=== PATIENT | female | born 1955 | race Caucasian/White ===

== ENCOUNTER → 2017-08-08 13:43 | Outpatient (CLI) | payer OTHER, SELFPAY ==
--- OUTSIDE RECORDS SUMMARY | 2017-08-08 15:23 | XMS RPT_ITS | Clinical Summary ---
:1955 Author Organization [facility] Address [address] [place] [address] Phone Care Team Providers Name Role Phone Grace Gustafson Gaurav Unavailable Unavailable Conditions or Problems Problem Name Problem Onset Status Entry Provider Comment Standard Annotate Code Date Date Description Pre-op [id number] Resolved Ciara M Preoperative cardiovascul (SNOMED 07/26 07/26 Kilner, cardiovascular ar exam CT) RN examination Pre-op [id number] Removed Ciara M Preoperative cardiovascul (SNOMED 07/26 07/26 Kilner, cardiovascular ar exam CT) RN examination Abnormal R94.31 Active Ciara M Abnormal electrocardi (ICD-10-CM 07/26 07/26 Kilner, electrocardiogra ogram [ECG] ) RN m [ECG] [EKG] [EKG] Medications Medication Instructions Start Stop Generic Name NDC Provider Date Date GLUCOSAMINE HCL 1500mg One / GLUCOSAMINE HCL Ciara M TABS tablet by mouth 14 TABS DUSTY Holden twice daily GLUCOSAMINE HCL Two tablets by / GLUCOSAMINE HCL Elan Nolasco TABS mouth daily 14 TABS MD Vishal GLUCOSAMINE HCL Two tablets by GLUCOSAMINE HCL Elan Nolasco TABS mouth daily MIGUEL ANGEL Rodgers MD CALCIUM 500 MG One tablet by / CALCIUM [id number] Ciara M TABS mouth daily 14 Adina RN B-12 5000 MCG One tablet by / CYANOCOBALAMIN [id number] Ciara M CAPS mouth daily 14 DUSTY Holden CENTRUM SILVER One tablet by / MULTIPLE [id number] Ciara M TABS mouth daily 14 VITAMINS-MINERALS DUSTY Holden IBUPROFEN 200 Two tablets by / IBUPROFEN [id number] Ciara M MG TABS mouth twice 14 Adina RN daily as needed Medications Administered No information available. Allergies, Adverse Reactions, Alerts Allergy Name Reaction Description Start Date Severity Status Provider NKDA Critical Active Elan Rodgers MD Results Date Name Value Unit Range Flag Description Office Visit SMOK STATUS Former smoker Tobacco use [facility] Replaced Document: Midmark ECG Observations EKG INTERP Sinus Bradycardia electrocardiogram WITHIN NORMAL LIMITS interpretation EKG T AXIS 39 deg T wave axis, electrocardiogram EKG QRS AXIS 21 deg QRS axis, electrocardiogram EKG PWAVAXIS 45 deg P wave axis, electrocardiogram QRS INTERVAL 112 ms QRS duration, electrocardiogram [id number] 406 ms GE use only - for LinkLogic import when terms are not otherwise specified QT INTERVAL new path ms QT interval, electrocardiogram VA INTERVAL 150 ms VA interval, electrocardiogram EKGHRTRATE 55 BPM heart rate on electrocardiogram Office Visit FALLRSKASSES No Fall risk assessment MEDS REVIEW Done Documentation of current medications ( procedure) Plan of Care Type Date Detail Appointment 01:00 PM Elan Rodgers MD, [address] [facility], [address] , [place], [address], Pending order Follow Up Appt 1 year Pending order DJN Pending order Follow Up Appt 1 year Pending order DJN Pending order DJN Pending order Follow Up Appt 1 year Pending order EKG (In office) Pending order *Hepatic Function Panel Pending order *Lipid Profile CC PCP Pending order Echocardiogram (complete) Pending order Nuclear stress test -Lexiscan Procedures Code Procedure Name Date Entry Date NSTLexi Nuclear stress test -Lexiscan Echo Echocardiogram (complete) F/U DJN DJN FUA 1 year Follow Up Appt 1 year CPT-66515 EKG (In office) 0788-1 *Hepatic Function Panel 07860-9 *Lipid Profile CC PCP Vital Signs Date Name Value Unit Description BMI (Body Mass Index) 24.89 kg/m2 Body Mass Index [Ratio] BP Diastolic 82 mm[Hg] blood pressure, diastolic - 8462-4 BP Systolic 124 mm[Hg] blood pressure, systolic - 8480-6 Heart Rate 60 /min pulse rate E&M - 8867-4 Height 64 [in_us] height E&M - 8302-2 Respiratory Rate 18 /min respiratory rate E&M - 9279-1 Weight Measured 145 [lb_av] weight E&M - 3141-9
--- OUTSIDE RECORDS SUMMARY | 2017-08-08 15:23 | XMS RPT_ITS | Clinical Summary ---
:1955 Author Organization Formerly [facility] Address [address] [place] [address] Phone Care Team Providers Name Role Phone Grace Gustafson Gaurav Unavailable Unavailable Conditions or Problems Problem Name Problem Onset Status Entry Provider Comment Standard Annotate Code Date Date Description Pre-op [id number] Resolved Ciara M Preoperative cardiovascul (SNOMED 07/26 07/26 Kilner, cardiovascular ar exam CT) RN examination Pre-op [id number] Removed Ciara M Preoperative cardiovascul (SNOMED 07/26 [...] 500 MG One tablet by / CALCIUM [id number] Ciara M TABS mouth daily 14 Adina RN B-12 5000 MCG One tablet by / CYANOCOBALAMIN [id number] Caira M CAPS mouth daily 14 DUSTY Holden CENTRUM SILVER One tablet by / MULTIPLE [id number] Ciara M TABS mouth daily 14 VITAMINS-MINERALS DUSTY Holden IBUPROFEN 200 Two tablets by / IBUPROFEN [id number] Ciara M MG TABS mouth twice 14 Adina RN daily as needed Medications Administered No information available. Allergies, Adverse Reactions, Alerts Allergy Name Reaction Description Start Date Severity Status Provider NKDA Critical Active Elan Rodgers MD Results Date Name Value Unit Range Flag Description Office Visit SMOK STATUS Former smoker Tobacco use [facility] Replaced Document: Midmark ECG Observations EKG INTERP [...] INTERVAL new path ms QT interval, electrocardiogram [place] INTERVAL 150 ms [place] interval, electrocardiogram EKGHRTRATE 55 BPM heart rate on electrocardiogram Office Visit FALLRSKASSES No Fall risk assessment MEDS REVIEW Done Documentation of current medications ( procedure) Plan of Care Type Date Detail Pending order Follow Up Appt 1 year [...] 1 year Follow Up Appt 1 year CPT-43778 EKG (In office) 0788-1 *Hepatic Function Panel 44749-0 *Lipid Profile CC PCP Vital Signs Date [...]
[2017-08-14 10:50] LABS: HPV Reflexed? NOT INDICATED
== END ==
PROVIDERS: Visit Provider Obstetrics & Gynecology
DX: Z12.4 Encounter for screening for malignant neoplasm of cervix (principal)
CPT/HCPCS: 88175; G0145

== ENCOUNTER 2019-07-28 05:26 | Day surgery (SDC) | payer OTHER, SELFPAY ==
--- NOTE | 2019-07-23 10:48 | EKG12_ITS ---
Test Reason : PREOP Blood Pressure : / mmHG Vent. Rate : 055 BPM Atrial Rate : 055 BPM P-R Int : 170 ms QRS Dur : 104 ms QT Int : 432 ms P-R-T Axes : 043 009 025 degrees QTc Int : 413 ms Sinus bradycardia Otherwise normal ECG Confirmed by ALLEN KAPADIA, PREM ([id number]), avid editor SUMAN JONES ([id number]) on 07/29/2019 9:40:13 AM Referred By: Seth Ugarte Confirmed By:PREM VILLA MD
[2019-07-23 11:23] LABS: Hematocrit 45.8 % (37-47); Hemoglobin 14.4 g/dL (12.0-15.0); Mean Corp Hgb Conc 31.4 g/dL (32-36); Mean Corpuscular Volume 98.5 fL (81-99); Mean Platelet Vol. 10.1 fl (6.2-12.0); Platelet Count 269 K/mm3 (150-450); RBC Distribution Width CV 13.2 % (11.6-14.6); RBC Distribution Width SD 47.6 fl (35.1-43.9); Red Blood Count 4.65 M/mm3 (4.2-5.4); White Blood Count 5.4 K/mm3 (4.4-11.0)
[2019-07-23 11:28] LABS: International Normalized Ratio 0.9; Prothrombin Time (Protime)PT. 11.9 SECONDS (11.7-14.9)
[2019-07-23 11:29] LABS: Partial Thromboplast Time 31.2 Seconds (24.1-36.2)
[2019-07-23 11:49] LABS: EST Glomerular Filtration Rate 77 mL/min (>60); Est Glom Filt Rate - Afr Amer 93 mL/min (>60)
--- NOTE | 2019-07-26 12:36 | HP.PCM_ITS ---
History and Physical Date of Admission: 07/28/19 Surgical History and Physical Jazmyne Disla, a 63 year old female 3 0 0 0 3, presents for Vaginal Hysterectomy and AP Repair on July 29, 2019 at 7:30. -- Prolapse Symptoms; Bulging from Vagina -- Prolapse that started in . 63 y.o. G 3 P 3 post-menopausal non- smoker and reports that she first noticed something down there in December, then in spinning class it seems to be the worst. Denies other concerns at this time. Prolapse which began . Jazmyne claims it started gradually and has been present Dec 2018. It occurs while spinning. It is located in the vagina. Jazmyne characterizes it to be non-radiating. Jazmyne characterizes the quality asymptomatic. Severity is moderate and very concerned. MEDICATIONS HISTORY: Current medications prescribed by our practice are: 1. Estrace 0.01% (0.1 mg/gram) vaginal cream, one half gram per vagina twice we ekly Patient is also takin. Calcium 500 500 mg calcium (1,250 mg) tablet,chewable 2. multivitamin tablet 3. vitamin C60-xwypi acid 1,000-400 mcg tablet, sublingual, One pill by mouth once a day ALLERGIES: NKDA Infections - Chicken pox, Herpes Simplex, Mumps and Measles Illnesses - no serious past illnesses Accidents - None Hospitalizations - None and see surgery Review of Systems: GENERAL - Denies fever, or chills SKIN - Denies skin changes EYES - Denies visual changes EARS - Denies difficulty hearing NOSE - Denies nasal congestion or bleeding MOUTH - Denies sore throat or difficulty swallowing NECK - Denies pain or swelling RESPIRATORY - Denies shortness of breath or wheezing CARDIOVASCULAR - Denies palpitations or chest pain GASTROINTESTINAL - Denies nausea, vomiting, diarrhea, constipation GENITOURINARY - Denies dysuria, frequency of urination, incontinence of urine MUSCULOSKELETAL - Denies joint or muscle pain NEUROLOGICAL - Denies localized numbness or weakness PSYCHIATRIC - Denies depression or anxiety ENDOCRINE - Denies heat or cold intolerance, weight loss or gain HEMATO-IMMUNOLOGIC - Denies excessive bleeding with cuts SOCIAL HISTORY: Alcohol Use - None Smoking - Never Diet - no special diet Lifestyle - moderate stress lifestyle and Exercise - regular Seat Belt Use - most of the time Employer - [employer] Job Description - [employer] Programs Illicit Drug Use - None 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 MENSTRUAL HISTORY: LMP Known?- Postmenopausal PAST PREGNANCIES: Total Pregnancies - 3; Full Term Pregnancies - 3; Premature - 0; Abortions, Induced - 0; Abortions, Spontaneous - 0; Ectopics - 0; Multiple Births - 0; Living Children - 3 SURGICAL HISTORY: 1. 12/15/1988 Tubal 2. 11/16/2001 (L) Knee Surgery 3. 01/20/2009 Toe Fusion 4. 08/02/2015 Bilateral Knee Surgery ; Dr. Chago Gaming PHYSICAL EXAM BP- 120/78 Sitting, Right arm, regular cuff Weight- 153.43050 lbs Height- 63 inch BMI:27.16 CONSTITUTIONAL - NAD, well nourished, and well developed SKIN - No rash, lesions, or ulcers HEENT - Normocephalic, PERRLA, EOMI NECK - No nodes, no nuchal rigidity and thyroid normal size and texture LYMPH NODES - Palpation of lymph nodes in neck and groins within normal limits LUNGS - CTA x2 without wheezes, crackles or rales CARDIAC - Regular rate and rhythm without rubs, murmurs, or gallops ABDOMEN - Without hepatosplenomegaly, distention, masses, rebound, or guarding; normal bowel sounds; no hernias EXTREMITIES - No edema or calf tenderness NEUROLOGICAL - Cranial nerves II-XII grossly intact PSYCHIATRIC - A and O to time, place, person, mood and affect External Genital Vagina - non-tender without lesions Urethra/Urethral Meatus - non-tender Bladder - non-tender Vagina - loss of rugae, no lesions no blood and cystocele 1 cm outside introitus with bearing down; rectocele to within 2 cm of introitus Cervix - without cervical motion tenderness and has normal size and features without evident lesions and cervix protrudes to within 2 cm of introitus with bearing down Uterus - multiparous size 6 cm & wt 75-125 g Adnexa - clear without masses or tenderness ASSESSMENT/PLAN: 1. Cystocele Midline and Uterovag Prolapse Incomplete Very symptomatic. Discussed options for treatment including expectant management, pessary use or proceeding with Vag Hyst and AP Repair. Pt considering proceeding with the surgery. Discussed surgery and RBAs at length and all questions answered. Procedure Criteria Procedure Type: Elective Procedure Essential: No COVID Risk Discussion: The surgeon/proceduralist and patient have discussed in detail the risk of exposure to and/or potential harm posed by the COVID-19 virus with having a surgery/procedure at this time versus the risk of delaying the surgery/procedure. It is not possible to know either the risk of delaying the surgery or procedure or chance of getting an infection with perfect accuracy, but a joint decision was made between the patient and the surgeon/proceduralist to proceed at this time with the scheduled surgery/procedure as indicated on the consent form.
[2019-07-27 12:06] LABS: Probe Check PASS; Specimen Processing Control PASS
[2019-07-28] VITALS (24 sets, daily range): BP systolic 73–133; BP diastolic 50–86; PULSE 43–101; RESP 14–18; TEMP 36.3–37.3; O2SAT 92–100; BMI 28.0
--- NOTE | 2019-07-28 | HYST_PTH ---
PATIENT: ANDREA QUILES LOC: [facility] [place] U#:[id number] AGE/SX: 63/F ROOM: RE07/28/[address]: Dr. Seth Ugarte MD : 1955 BED: DIS: 07/29/2019 SPEC #: [id number] RECD: 07/28/19 12:04 STATUS: ANANTH JOHNSONTawny #: [id number] ANTOLIN: 07/28/19 00:[address]: Seth Ugarte DEPT: SURGICAL PATHOLOGY RECD BY: Evgeny Singh ENTERED: 07/28/19 12:04 SP TYPE: HYSTERECT OTHR DR: Dr. Rl Stevenson MD Tissues: Uterus, NOS Procedures: Surgery Specimen Level V HEADER OPERATION: Vaginal hysterectomy, anterior and posterior repair PRE-OP DIAGNOSIS: Cystocele midline and uterovaginal prolapse TISSUE SUBMITTED: Uterus and vaginal mucosa MICROSCOPIC DIAGNOSIS Uterus and vaginal mucosa, vaginal hysterectomy: Cervix - mild chronic cystic cervicitis. Endometrium - atrophic endometrium. Myometrium - focal superficial adenomyosis. See comment. SJ:rg 07/29/19 COMMENT Vaginal mucosal tissue is not identified in the specimen container. MICROSCOPIC DESCRIPTION Slides are reviewed. GROSS DESCRIPTION Received in fixative is one container labeled with the patient's name and designated uterus and vaginal mucosa. The specimen consists of a hysterectomy specimen consisting of uterus with cervix. No mucosal tissue consistent with vaginal mucosa are identified. The uterus with cervix weighs 39 gm and measures 7 x 3.5 x 2.5 cm. The serosal surface is focally ragged anteriorly. The ectocervical mucosa is unremarkable. The external os is oval in contour. The endocervical canal measures 3 cm in length and the endocervical mucosa is dyson, glistening and unremarkable. The endometrium is dyson, glistening without any mass lesion and measures 0.1 cm in thickness. Sections of the uterine wall do not reveal any mass lesion and measures up to 1.3 cm in thickness. Warehouse Hand sections are submitted in six cassettes as follows: 1 - anterior cervix, 2 - posterior cervix, 3 & 4 - anterior uterine wall, 5 & 6 - posterior uterine wall. / ALONA:christy 07/28/19 TC:5 CPT: 64136
[2019-07-28] MEDS: Lactated Ringers 1,000 ML 100 ML IV ×2 (06:13→08:45)
--- NOTE | 2019-07-28 07:33 | PCM.OPRPT ---
Report of Operation Date of Procedure: 07/28/19 Pre-Operative Diagnosis: Uterovaginal Prolapse, Cystocele, Rectocele Post-Operative Diagnosis: Uterovaginal Prolapse, Cystocele, Rectocele Surgery/Procedure Performed:: Vaginal Hysterectomy and Anterior Posterior Repair Description of Surgical Findings:: 8 cm uterus with large cystocele moderate rectocele. health care liaison: Kenneth Wiggins Type of Anesthesia:: General - Endotracheal Anesthesiologist: Lb York Specimen's removed: Uterus and vaginal mucosa Drains: Dior to straight drain Estimated Blood Loss (mL): 100 cc Fluids Replaced: Crystalloid Description of Procedure: Surgeon: Seth Ugarte MD, FACOG Indications: This is a 63-year-old who is been having problems with symptomatic uterovaginal prolapse. Conservative measures have not been helpful. Given this the patient desires that we proceed the above procedure. She has been counseled regarding the risk and indications of this procedure including the possibility of bleeding, infection, and injury to surrounding structures such as bowel bladder. All questions were answered. Procedure: Patient was taken to the operating room where after induction of general anesthesia she was placed in the dorsal lithotomy position and prepped and draped in the usual sterile fashion. A Dior catheter was placed. Anterior cervix was grasped with a tenaculum and anterior cervix circumscribed with cautery on a setting of 35 W coagulation. Anterior vaginal mucosa was undermined and anterior peritoneum was easily entered. The posterior aspect of the cervix was circumscribed with a knife and posterior peritoneum easily entered. Progressive bites were taken on either side of the uterine cervix and each pedicle ligated with 0 Vicryl suture. Superior pedicles were ligated ?2 with 0 Vicryl suture and sidewall pedicles were examined and oversewn where necessary with [id number]-[id number] 0 Vicryl suture to achieve hemostasis. Posterior vaginal cuff was oversewn with running locked 0 Vicryl suture. Hemostasis was noted and peritoneum was closed in a pursestring fashion incorporating superior pedicles into the stitch. Vaginal cuff was then closed front to back with interrupted tfagsi-ea-jualv 0 Vicryl suture. Hemostasis was noted. Attention was turned toward the anterior repair portion of the procedure. Anterior vaginal mucosa was undermined and divided and then imbricated toward the midline with interrupted 0 Vicryl sutures. Vaginal mucosa was trimmed and then closed with interrupted 2-0 chromic suture. Vaginal cuff was then closed front to back with interrupted rlacyo-yc-axfai 0 Vicryl suture. Hemostasis was noted. Attention was turned toward the posterior repair portion of the procedure. Remnants of the hymenal ring were grasped with Allises and a V-shaped incision was made in the perineum. Rectovaginal mucosa was then undermined divided and then imbricated toward the midline with interrupted 0 Vicryl suture. Vaginal mucosa was trimmed and then closed with running locked 2-0 chromic suture. Remnants of the bulbocavernosus muscles were identified and brought toward the midline with a single uhukqc-ar-iwlpl 0 Vicryl suture and perineum was closed in the usual fashion with running and subcuticular, and ggupyb-hv-hraug 2-0 chromic suture. Hemostasis was noted. Dior catheter was again opened and clear yellow urine was noted. Vagina was packed with about 85% of an iodoform tape. Patient tolerated the procedure well was taken to recovery room in satisfactory condition; sponge instrument and needle counts were all reportedly correct. Estimated blood loss for the case was 100 cc. Cefotan 2 g IV was given prior to beginning the operative procedure. There were no apparent complications of the surgery. Specimen to pathology was uterus and vaginal mucosa. Grafts/Implants Used: None - Complications None - Admit VTE Documentation VTE Present on Admission: Yes VTE Mechan Device Prophylaxis: SCD's VTE Pharm Prophylaxis ordered?: Yes
--- NOTE | 2019-07-28 07:49 | EKG12_ITS ---
Test Reason : OP Blood Pressure : / mmHG Vent. Rate : 066 BPM Atrial Rate : 066 BPM P-R Int : 150 ms QRS Dur : 108 ms QT Int : 454 ms P-R-T Axes : 042 068 024 degrees QTc Int : 475 ms Normal sinus rhythm Normal ECG When compared with ECG of 23-JUL-2019 11:00, Questionable change in QRS axis QT has lengthened Confirmed by YEYO KAPADIA, DUGLAS ([id number]), features editor MARYBETH BENZ ([id number]) on 08/04/2019 10:41:02 AM Referred By: Seth Ugarte Confirmed By:ANGELITA ORONA MD
[2019-07-28] MEDS: Lubricating Jelly 60 GM Tube 30 GM TOPICAL (07:50)
--- NOTE | 2019-07-28 09:35 | DCINST_ITS ---
Discharge Diet: No Restrictions Discharge Activity: Return to Normal Activity, May Not Drive - while taking narcotic pain medications., May Shower, May Take a Tub Bath May resume sexual activity in: 6-8 weeks Call your doctor if your incision/area has: Continuous Slow Oozing, Sudden Inc reased Bleeding, Increased Pain/ Swelling, Increased Redness, Foul Smelling Discharge Call your doctor if you observe: Fever of 101 or Higher, Inability to urinate, Inability to have a bowel movement, Using more than one pad per hour Allergies/Adverse Reactions: Allergies No Known Allergies Allergy (Verified 07/28/19 06:02) Medications to take at Discharge Calcium Carbonate/Vitamin D3 [Calcium 500-Vit D3 200 Tablet] 1 ea PO DAILY 07/21/19 Cyanocobalamin (Vitamin B-12) [Vitamin B-12] 1,000 mcg PO DAILY 07/21/19 RX: Multivitamin 1 ea PO DAILY 07/21/19 Docusate Sodium [Colace] 100 mg PO BID PRN PRN #60 cap 07/28/19 RX: Oxycodone [Oxyir] 5 mg PO Q6H PRN PRN 7 Days #10 tab 07/28/19 The following prescriptions were given: Docusate Sodium [Colace] 100 mg PO BID PRN PRN #60 cap PRN Reason: Constipation Transmission Status: Received by [id number] RX: Oxycodone [Oxyir] 5 mg PO Q6H PRN PRN 7 Days #10 tab PRN Reason: Pain Score 6-10/10 Transmission Status: Received by [id number] Primary Care Physician: Rl Stevenson MD [Primary Care Provider] - Test Results: Test results from this visit will be discussed in further detail at your follow- up appointment, if applicable. Please Follow Up With: Seth Ugarte MD When: 2-3 weeks
--- NOTE | 2019-07-28 11:00 | EKG12_ITS ---
Test Reason : OP Blood Pressure : / mmHG Vent. Rate : 087 BPM Atrial Rate : 087 BPM P-R Int : 150 ms QRS Dur : 114 ms QT Int : 436 ms P-R-T Axes : 053 028 063 degrees QTc Int : 524 ms Sinus rhythm with frequent Premature ventricular complexes in a pattern of bigeminy Otherwise normal ECG When compared with ECG of 28-JUL-2019 07:49, MANUAL COMPARISON REQUIRED, DATA IS UNCONFIRMED Confirmed by YEYO KAPADIA, DUGLAS ([id number]), editor trade journal MARYBETH BENZ ([id number]) on 08/04/2019 10:40:46 AM Referred By: Seth Ugarte Confirmed By:ANGELITA ORONA MD
--- NOTE | 2019-07-28 11:26 | SUR.PHASEI ---
dr prado in to review ekg, new orders received.
[2019-07-28] MEDS: Lactated Ringers 1,000 ML 999 ML IV (11:32)
[2019-07-28 11:54] LABS: Absolute Lymphocyte Count 0.74 X10^3/uL (0.83-4.51); Absolute Neutrophil Count 12.9 X10^3/uL (2.0-7.7); Basophil# 0.02 X10^3/uL; Basophil% 0.1 % (0-1); Eosinophil# 0.01 X10^3/uL; Eosinophils% 0.1 % (0-5); Hematocrit 40.8 % (37-47); Hemoglobin 12.9 g/dL (12.0-15.0); Lymphocyte # 0.74 X10^3/ul (4.0); Lymphocyte % 5.3 % (19-41); Mean Corp Hgb Conc 31.6 g/dL (32-36); Mean Corpuscular Hgb 31.3 pg (27.0-32.0); Mean Platelet Vol. 10.6 fl (6.2-12.0); Monocyte% 1.4 % (0-10); NRBC Flagged by Analyzer 0 % (0-5); Neutrophil # 12.94 X10^3/uL (2.7-7.7); Neutrophil % 92.6 % (47-70); Platelet Count 190 K/mm3 (150-450); RBC Distribution Width CV 13.2 % (11.6-14.6); RBC Distribution Width SD 47.8 fl (35.1-43.9); Red Blood Count 4.12 M/mm3 (4.2-5.4)
[2019-07-28 12:07] LABS: Anion Gap 8 (5-15); BUN 15 mg/dL (7-18); BUN/Creat Ratio 14.7 RATIO (10-20); Calcium,Total 8.4 mg/dL (8.5-10.1); Chloride 108 mmol/L (98-107); Creatinine, Serum 1.02 mg/dL (0.55-1.02); EST Glomerular Filtration Rate 58 mL/min (>60); Est Glom Filt Rate - Afr Amer 70 mL/min (>60); Estimated Creatinine Clearance 45.23 ml/min; Glucose 178 mg/dL (74-106); Potassium 3.7 mmol/L (3.5-5.1); Sodium Level 142 mmol/L (136-145)
[2019-07-28] MEDS: Dextrose 5%-Lactated Ringers 1,000 ML 150 ML IV ×2 (13:40→20:59)
[2019-07-28] MEDS: Ketorolac 30 MG/ML Syringe IV ×3 (15:13→23:37)
[2019-07-28] MEDS: HYDROmorphone 0.5 MG/0.5 ML SYRINGE IV (18:24)
[2019-07-28] MEDS: Enoxaparin 30 MG/0.3 ML Syringe SC (19:26)
[2019-07-28] MEDS: 0.9% Saline Lock 10 ML Syringe IV (19:30)
[2019-07-29 02:50] VITALS: BP 118/72; PULSE 79; RESP 18; TEMP 37.1; O2SAT 93
[2019-07-29] MEDS: Dextrose 5%-Lactated Ringers 1,000 ML 150 ML IV (03:32)
[2019-07-29 05:50] LABS: Hematocrit 34.8 % (37-47); Hemoglobin 11.3 g/dL (12.0-15.0); Mean Corp Hgb Conc 32.5 g/dL (32-36); Mean Corpuscular Hgb 31.3 pg (27.0-32.0); Mean Corpuscular Volume 96.4 fL (81-99); Mean Platelet Vol. 10.2 fl (6.2-12.0); Platelet Count 191 K/mm3 (150-450); RBC Distribution Width CV 13.5 % (11.6-14.6); RBC Distribution Width SD 47.8 fl (35.1-43.9); Red Blood Count 3.61 M/mm3 (4.2-5.4); White Blood Count 11.7 K/mm3 (4.4-11.0)
[2019-07-29] MEDS: Ketorolac 30 MG/ML Syringe IV (05:59)
[2019-07-29] MEDS: 0.9% Saline Lock 10 ML Syringe IV (05:59)
[2019-07-29 06:12] LABS: Creatinine, Serum 0.83 mg/dL (0.55-1.02); EST Glomerular Filtration Rate 74 mL/min (>60); Est Glom Filt Rate - Afr Amer 90 mL/min (>60); Estimated Creatinine Clearance 55.58 ml/min
[2019-07-29 07:28] VITALS: O2SAT 93
--- NOTE | 2019-07-29 08:08 | PN.OBGYN_ITS ---
Subjective: Patient without complaints. Tolerating diet well. Dior catheter still in. Positive flatus. Minimal pain. Objective: Vaginal pack removed with minimal vaginal bleeding noted. Hemoglobin and creatinine okay. - Physical Exam Vitals/I&O's: Vital Signs Temp Pulse Resp BP Pulse Ox 98.7 F 79 18 118/72 93 07/29/19 02:50 07/29/19 02:50 07/29/19 02:50 07/29/19 02:50 07/29/19 07:28 Oxygen Flow Rate (L/min) 2 Oxygen Delivery Method Room Air Weight: 153 lb 9.6 oz Body Mass Index (BMI) 28.0 Intake and Output for Last 24 Hours 07/27/19 07/28/19 07/29/19 23:59 23:59 23:59 Intake Total 5322.5 / 5322.5 1382.5 / 1382.5 Output Total 745 / 745 800 / 800 Balance 4577.5 / 4577.5 582.5 / 582.5 Laboratory Results 07/28/19 11:40: WBC 14.0 H, RBC 4.12 L, Hgb 12.9, Hct 40.8, MCV 99.0, MCH 31.3, MCHC 31.6 L, RDW Std Deviation 47.8 H, RDW Coeff of Srikanth 13.2, Plt Count 190, MPV 10.6, Immature Gran % (Auto) 0.500, Neut % (Auto) 92.6 H, Lymph % (Auto) 5.3 L, [place] % (Auto) 1.4, Eos % (Auto) 0.1, Baso % (Auto) 0.1, Absolute Neuts (auto) 12.9 H, Absolute Lymphs (auto) 0.74 L, Nucleated RBC % 0 07/28/19 11:40: Sodium 142, Potassium 3.7, Chloride 108 H, Carbon Dioxide 26.0, Anion Gap 8, BUN 15, Creatinine 1.02, Estim Creat Clear Calc 45.23, Est GFR (MDRD) Af Amer 70, Est GFR (MDRD) Non-Af 58 L, BUN/Creatinine Ratio 14.7, Glucose 178 H, Calcium 8.4 L, Troponin I < 0.015 07/29/19 05:33: WBC 11.7 H, RBC 3.61 L, Hgb 11.3 L, Hct 34.8 L, MCV 96.4, MCH 31.3, MCHC 32.5, RDW Std Deviation 47.8 H, RDW Coeff of Srikanth 13.5, Plt Count 191, MPV 10.2 07/29/19 05:33: Creatinine 0.83, Estim Creat Clear Calc 55.58, Est GFR (MDRD) Af Amer 90, Est GFR (MDRD) Non-Af 74 Current Medications Acetaminophen (Tylenol) 1,000 mg PO Q8H PRN PRN PRN Reason: Pain Score 1-3/10 or Fever Docusate Sodium (Colace) 100 mg PO BID PRN PRN PRN Reason: CONSTIPATION Hydromorphone HCl (Dilaudid Inj) 0.5 mg IV Q3H PRN PRN PRN Reason: Pain Score 4-10/10 Last Admin: 07/28/19 18:24 Dose: 0.5 mg Documented by: Dextrose/Lactated Ringer's () 1,000 mls @ 150 mls/hr IV .Q6H40M [facility] Last Admin: 07/29/19 03:32 Dose: 150 mls/hr Documented by: Sodium Chloride () 250 mls @ 15 mls/hr IV .[id number] PRN PRN Reason: Saline Flush Ketorolac Tromethamine (Toradol (Bkc)) 30 mg IV Q6H [facility] Stop: 08/02/19 12:01 Last Admin: 07/29/19 05:59 Dose: 30 mg Documented by: Ondansetron HCl (Zofran) 4 mg IV Q4H PRN PRN PRN Reason: NAUSEA Oxycodone HCl (Oxyir) 5 mg PO Q4H PRN PRN PRN Reason: Pain Score 4-10/10 Simethicone (Mylicon) 80 mg PO [facility] Last Admin: 07/28/19 21:10 Dose: 80 mg Documented by: Sodium Chloride () 10 - 40 ml IV UD PRN PRN Reason: SALINE FLUSH Last Admin: 07/29/19 05:59 Dose: 10 ml Documented by: Medical Necessity - Tobacco Use Smoking Status: Never smoker Tobacco Use: Non-smoker Assessment/Plan Doing well postoperative day #1 status post vaginal hysterectomy and anterior posterior repair. Will release to home with routine instructions.
[2019-07-29 08:19] VITALS: BP 131/76; PULSE 59; RESP 18; TEMP 36.9; O2SAT 98
== END 2019-07-29 10:03 | disposition home or self-care (01) ==
LOC: SDC 05:27 → AC 05:38 → MS3 07:44
PROVIDERS: Anesthesiology; Referring Provider Obstetrics & Gynecology; Visit Provider Obstetrics & Gynecology
PROC: (CPT 58260; principal; 2019-07-28 07:10)
DX: N72 Inflammatory disease of cervix uteri (principal); N80.0 Endometriosis of uterus; N81.4 Uterovaginal prolapse, unspecified; Z11.59 Encounter for screening for other viral diseases
CPT/HCPCS: 00942; 57260; 58260; 36415; 80048; 82565; 84484; 85025; 85027; 85610; 85730; 86850; 86900; 86901; 87635; 88307; 93005; 99251; G2023; J7120; A4216; G0463; J2405; U0003

== ENCOUNTER → 2023-03-20 | Outpatient (CLI) | payer OTHER, SELFPAY ==
--- NOTE | 2023-03-20 10:00 | CYSPIN_PTH ---
PATHOLOGY RESULTS PATIENT: ANDREA QUILES LOC: [facility] U#:[id number] AGE/SX: 67/F ROOM: RE03/20/[address]: Dr. Charlotte Esposito MD : [id number] BED: DIS: 03/20/2023 SPEC #: [id number] RECD: 03/21/23 07:32 STATUS: ANANTH RETawny #: [id number] ANTOLIN: 03/20/23 10:[address]: Charlotte Esposito DEPT: CYTOLOGY RECD BY: Starr Camacho ENTERED: 03/21/23 07:32 SP TYPE: CYSPIN FL Tissues: Urine Procedures: Pap Stain (control) Special Stain Group II Cytospin Fluid HEADER OPERATION: Not noted PRE-OP DIAGNOSIS: Gross hematuria TISSUE SUBMITTED: Urine for cytology DIAGNOSIS CYTOLOGY Urine for cytology (cytospin): Negative for high-grade urothelial carcinoma (NHGUC), [facility] System Category II. See comment. ALONA:christy 03/21/2023 COMMENT The specimen predominantly consists of squamous epithelial cells. Clinical correlation and appropriate follow up are necessary. The [facility] System for urine cytology diagnostic categorization was used in the evaluation of this case. CYTOLOGY STUDY Slides are reviewed. CYTOLOGY GROSS Received is 20 ml of light yellow cloudy fluid labeled with the patient's name and and designated per the requisition as urine. Submitted for cytology preparation. / christy 03/20/2023 TC:4 CPT: 63481
[2023-03-20 18:14] LABS: Cytology, Body Fluid / CSF SEE PATHOLOGY REPORT
--- OUTSIDE RECORDS SUMMARY | 2023-03-20 20:05 | XMS RPT_ITS | CCD ---
Author Name Unknown Address [address] [place] [address] Organization [facility] Care Team Providers Care Director General Name Role Phone ZUTSHI, MASSARAT Unavailable Unavailable RUPA BENZ Unavailable Unavailable ZUTSHI, MASSARAT Unavailable Unavailable ZUTSHI, MASSARAT Unavailable Unavailable ZUTSHI, MASSARAT Unavailable Unavailable ZUTSHI, MASSARAT Unavailable Unavailable Grace Gustafson Unavailable Unavailable Grace Gustafson Unavailable Unavailable Required, No Pcp Unavailable Unavailable Nidhi, Briana Unavailable Unavailable Jessica GREGG, Nishant Santizo Unavailable Mekhi KAPADIA, Dr. Mendoza Unavailable Cate KAPADIA, Dr. Porter Unavailable [phone] Sandip MONTANO, Lissy Unavailable Unavailable Felisha RM, Maria Alejandra Unavailable Avni KAPADIA, Felix Bryson Unavailable Jes Simmons MA Unavailable Unavailable Graham KAPADIA, Tramaine Schmidt Unavailable Yadi GREGG, Analy Nixon Unavailable Rylie Sutton MA Unavailable Unavailable Sam RM, Tiffanie Unavailable Unavailable Eric GREGG, Naida Nolasco Unavailable Ramiro RM, Melyssa Christiansen Unavailable Unavailab jewel Bullard LPN, Collette Le Unavailable Unavailab jewel Beasley LPN, Kathy Unavailable Unavailcristiano Wu LPN, Hina Vieira Unavailable Unavaila ble Unavailable Unavailable Seth Ugarte MD Primary Care Provider [phone] ENRIQUE CORDERO Admitting Unavailable ENRIQUE CORDERO Primary Care Unavailable ENRIQUE CORDERO Attending Unavailable JESSICA, LUKE E Consulting Unavailable PROVIDER, UNKNOWN Consulting Unavailable JESSICA, LUKE E Consulting Unavailable JESSICA, LUKE E Attending Unavailable JESSICA, LUKE E Admitting Unavailable JESSICA, LUKE E Primary Care Unavailable PROVIDER, UNKNOWN Consulting Unavailable JESSICA, LUKE E Attending Unavailable JESSICA, LUKE E Admitting Unavailable JESSICA, LUKE E Primary Care Unavailable JESSICA, LUKE E Consulting Unavailable PROVIDER, UNKNOWN Consulting Unavailable Medications Current Medications Medication Drug Class(es) Dates Sig (Normalized) Sig (Original) azithromycin 250 mg oral tablet (6 sources) Macrolide Antimicrobial Start: 02-16-2023 End: 02-21-2023 Azithromycin 250 MG tablet Indications: Acute bronchitis, unspecified organism 2 tabs po day 1 then 1 tab day 2-5 6 tablet 0 02/16/2023 02/21/2023 Active Completed/Discontinued Medications Medication Drug Class(es) Dates Sig (Normalized) Sig (Original) acetaminophen 325 mg / oxyCODONE hydrochloride 5 mg oral tablet (5 sources) Opioid Agonist Start: 08-11-2015 End: 08-24-2015 PERCOCET, 5-325MG (Oral Tablet) ; 1 (one) Tablet q 4hrs prn pain 1-5, 2 tabs q 4hrs prn pain 6-10 for 0 days Quantity: 120 {Tablet} Refills: 0 Ordered: 24-Aug-2015 JAG Wu Start: 11-Aug-2015 End: 24-Aug-2015 Status: Inactive acyclovir 400 mg oral tablet (5 sources) Herpesvirus Nucleoside Analog DNA Polymerase Inhibitor, Herpes Simplex Virus Nucleoside Analog DNA Polymerase Inhibitor, Herpes Zoster Virus Nucleoside Analog DNA Polymerase Inhibitor Start: 07-30-2015 End: 08-24-2015 take 1 tablet by mouth twice daily ACYCLOVIR, 400MG (Oral Tablet) ; 1 (one) Tablet two times daily for 0 days Quantity: 10 {Tablet} Refills: 0 Ordered: 24-Aug-2015 JAG Wu Start: 30-Jul-2015 End: 24-Aug-2015 Status: Inactive amoxicillin 875 mg / clavulanate 125 mg oral tablet (5 sources) Penicillin-class Antibacterial Start: 12-17-2015 End: 12-27-2015 take 1 tablet by mouth every twelve hours at mealtime Augmentin 875-125 MG Oral Tablet ; 1 (one) Tablet every 12 hours with food for 10 days Quantity: 20 {Tablet} Refills: 0 Ordered: 17-Dec-2015 MD Tramaine Stevenson Start: 17-Dec-2015 End: 27-Dec-2015 Status: Inactive calcium carbonate 1250 mg oral tablet (2 sources) Start: 07-27-2015 take 1 tablet by mouth once daily CALCIUM 500 MG TABS One tablet by mouth daily CALCIUM [id number] Ciara Holden RN codeine phosphate 2 mg/ml / promethazine hydrochloride 1.25 mg/ml oral solution (5 sources) Opioid Agonist, Phenothiazine Start: 04-07-2010 End: 08-11-2011 PROMETHAZINE-CODE INE, 6.25-10MG/5ML (Oral Syrup) ; 2 (two) teaspoon(s) at bedtime for 0 days Quantity: 4 {ounce(s)} Refills: 0 Ordered: 11-Aug-2011 JAG Wu Start: 07-Apr-2010 End: 11-Aug-2011 Status: Inactive glucosamine 1000 mg oral tablet (6 sources) Start: 07-27-2015 take 1 tablet by mouth twice daily GLUCOSAMINE HCL TABS 1500mg One tablet by mouth twice daily GLUCOSAMINE HCL TABS Ciara Holden RN Problems Active Problems Problem Classification Problem Date Documented Da te Episodic/Chronic Acute bronchitis (1 source) Acute bronchitis; Translations: [Acute bronchitis, unspecified] 02-16-2023 Episodic Allergic reactions (10 sources) Contact dermatitis; Translations: [Unspecified contact dermatitis, unspecified cause] 06-17-2013 Episodic Chronic obstructive pulmonary disease and bronchiectasis (15 sources) Bronchitis; Translations: [Bronchitis, not specified as acute or chronic] 01-24-2023 Episodic Disorders of lipid metabolism (10 sources) Dyslipidemia; Translations: [Hyperlipidemia, unspecified] 01-24-2023 Chronic Past or Other Problems Problem Classification Problem Date Documented Date Episodic/Chronic Other lower respiratory disease (1 source) Cough; Translations: [Cough] Onset: 04-29-2019 02-16-2023 Episodic Unclassified (5 sources) Well adult female - The patient feels well with no complaints, has good energy level and is sleeping well. The patient has a balanced diet and takes supplemental vitamins. The patient exercises 3 - 4 times per week (Pt does 5 days a week crossfit). The patient sleeps 7 hours per night. 01-25-2023 Unclassified (5 sources) Cold Symptoms - Symptoms include nasal congestion, runny nose, ear pain, sore throat, hoarseness, productive cough, fever (103.5 today yesterday 101), general malaise and headache, but do not include wheezing. The onset was sudden 3 day(s) ago. The symptoms occur constantly. The patient describes this as moderate in severity and worsening. Current treatment includes NSAIDs (took some yesterday none today). Risk factors do not include smoking. The patient has been exposed to an individual with similar symptoms (her child was sick as well), but has not been exposed to an individual with a cough, an individual with an upper respiratory infection, an individual with strep or secondhand smoke. Patient denies history of seasonal allergies, recurrent sinusitis, recurrent strep pharyngitis, asthma, tonsillectomy or recurrent ear infections. 04-07-2022 Unclassified (5 sources) Rash - The onset of the rash has been gradual and has been occurring in an intermittent (comes and goes at timesmore persistent latley) pattern for 1 year. The course has been increasing. The rash is characterized as red. The rash was first seen on the entire body (just under breastsleft is worse). There has been no progression. There has been associated pain (only when she srcubs it), while there has been no associated itching or drainage. There has been no associated chills, fever or itching. Note for Rash : pt uses corn starch baby powder under her breasts all the time and it normally helps w mer tried triamcinoloe crm 0.025 didnt workhusband had 0.1 triamcinolone cream and she tried that and it helped a little bit but wasnt really helping anymore 06-27-2019 Unclassified (5 sources) Cold Symptoms - Symptoms include nasal congestion, runny nose, ear pain (tenderness on outer and down), sore throat, dry cough (this has been longer) and fever, but do not include chills, general malaise or headache. The onset was gradual day(s) ago. The symptoms occur constantly. The patient describes this as moderate in severity and worsening. The patient is not currently being treated for this problem. 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 Medical history includes seasonal allergies, but patient denies history of recurrent sinusitis, recurrent strep pharyngitis, asthma, tonsillectomy or recurrent ear infections. Note for Upper respiratory infection : Doesn't feel flu like 05-31-2017 Unclassified (5 sources) Cold Symptoms - Symptoms include runny nose, sore throat (with swelling in throat and neck) and hoarseness, but do not include fever, chills or headache. The onset was sudden 24 hour(s) ago. The symptoms occur constantly. The patient describes this as moderate in severity and worsening. Current treatment includes NSAIDs. Risk factors do not include smoking. 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 12-18-2015 Unclassified (3 sources) Follow up consultation - The patient is here to follow-up after hospitalization ([facility] [place] Dx: Bilateral knee replacements) on : (08/04/15-08/07/15). Follow up visit with no current symptoms. Note for Consultation follow-up : Physical therapy 3 times a week and daily at home. 08-25-2015 Unclassified (3 sources) [ADDITIONAL REASON] Transition into care - The patient is transitioning into care from a [facility] facility and a summary of care was reviewed . 08-25-2015 Unclassified (5 sources) Well Adult, female - The patient feels well with minor complaints (cough), has good energy level and is sleeping well. The first day of the last menstrual period was : (2006). The patient has a balanced diet and takes supplemental vitamins. The patient exercises weekly. The patient sleeps 6 hours per night. 06-17-2013 Unclassified (5 sources) Form Completion Physicals - The patient feels well with no complaints, has good energy level and is sleeping well. There are no current symptoms. The patient exercises weekly. The patient has an appropriate balanced diet and takes suppemental vitamins and sleeps on average 7 hours per night. There are no behavioral problems. Last tetanus vaccination: unknown/unsure. 08-12-2011 Unclassified (5 sources) Cold Symptoms - Symptoms include nasal congestion, ear fullness, sore throat, dry cough, fever (highest 101.2 on wed), chills and general malaise. The onset was sudden 5 day(s) ago. The symptoms occur constantly. The patient describes this as moderate in severity and unchanged. Current treatment includes cough suppressants and NSAIDs. 04-09-2010 Unclassified (5 sources) Sore Throat - The onset of the sore throat has been acute and has been occurring in a persistent pattern for 1 week. The course has been without change. The sore throat is described as moderate. The sore throat was precipitated by was precipitated by exposure to a person with a viral illness, but not exposure to a person with strep pharyngitis. Symptoms include sore throat (and swollen glands,and earlier it look like little sore in the back of her throat.), fever, headache and cough, but do not include runny nose, nasal congestion or ear pain. The symptoms are aggravated by coughing and swallowing. There are no relieving factors. Medical History dose not include recurrent sinusitis. 01-11-2010 Unclassified (2 sources) Transition into care - The patient is transitioning into care from a [facility] facility and a summary of care was reviewed . 08-25-2015 Unclassified (2 sources) [ADDITIONAL REASON] Follow up consultation - The patient is here to follow-up after hospitalization ([facility] [place]x: Bilateral knee replacements) on : (08/04/15-08/07/15). Follow up visit with no current symptoms. Note for Consultation follow-up : Physical therapy 3 times a week and daily at home. 08-25-2015 Results Test Name Value Interpretation Reference Range Facil ity Vital Signs Date Time Vital Sign Value Performing Clinician Susan cao 02-16-2023 09:090500 Body height 157.5 cm Armida Emmanuel CNP Work Phone: [employer] 02-16-2023 09:09-0500 Body mass index (BMI) [Ratio] 24.33 kg/m2 Armida Emmanuel CNP Work Phone: [employer] 02-16-2023 09:09-0500 Body temperature 100.2 [degF] Armida Emmanuel CNP Work Phone: [facility] [employer] [facility] 02-16-2023 09:09-0500 Body weight 60.33 kg Armida Emmanuel CNP Work Phone: [facility] 02-16-2023 09:09-0500 Diastolic blood pressure 72 mm[Hg] Armida Emmanuel CNP Work Phone: [facility] 02-16-2023 09:09-0500 Heart rate 72 /min Armida Emmanuel CNP Work Phone: [facility] 02-16-2023 09:09-0500 Respiratory rate 18 /min Armida Emmanuel CNP Work Phone: [facility] 02-16-2023 09:09-0500 SaO2% (BldA) [Mass fraction] 98 % Armida Emmanuel CNP Work Phone: [facility] 02-16-2023 09:09-0500 Systolic blood pressure 127 mm[Hg] Armida Emmanuel CNP Work Phone: [email or web address] [facility] 01-24-2023 10:08-0500 Body height 157.48 cm Jes Simmons MA [employer] [facility] [employer] 01-24-2023 10:08-0500 Body mass index (BMI) [Ratio] 24.51 kg/m2 Jes Simmons MA [employer] [facility] [employer] 01-24-2023 10:08-0500 Body surface area Derived from formula 1.61 m2 Jes Simmons MA [employer] [facility] [employer] 01-24-2023 10:08-0500 Body weight 60.78 kg Jes Simmons MA [employer] [facility] [employer] 01-24-2023 10:08-0500 Diastolic blood pressure 84 mm[Hg] Jes Simmons MA [employer] [facility] [employer] Encounters Encounter Date Encounter Type Care Provider Facility Start: 03-02-2023 [facility] ENRIQUE CORDERO [facility] Start: 02-26-2023 End: 02-26-2023 ambulatory NISHANT LOPEZ [facility] Start: 02-23-2023 End: 02-23-2023 Orders Nishant Lopez PA-C Work Phone: [facility], [facility]. Start: 02-16-2023 End: 02-16-2023 Office outpatient visit 15 minutes Dennys Dao CNP Work Phone: [facility] Procedures Date Procedure Procedure Detail Performing Clinician Start: 02-23-2023 End: 02-26-2023 Screening mammography bi 2-view breast inc cad Nishant Lopez PA-C Work Phone: Start: 02-16-2023 [facility] influenza Wendy federico Emmanuel CNP Work Phone: Start: 02-16-2023 SARS-CoV-2 (COVID-19 ) RNA [Presence] in Unspecified specimen by LIZ with probe detection Armida Emmanuel CNP Work Phone: Start: 01-24-2023 End: 02-14-2023 Dxa bone density study 1/> sites axial skel Nishant Lopez PA-C Work Phone: Start: 01-24-2023 End: 01-24-2023 Depression screening Nishant Lopez PA-C Work Phone: Start: 01-24-2023 End: 01-24-2023 Falls risk assessment documented Nishant Lopez PA-C Work Phone: Start: 01-24-2023 End: 01-24-2023 Pt falls assess docd w/o fall/injury past year Nishant Lopez PA-C Work Phone: Start: 01-24-2023 End: 01-24-2023 Scr dep neg, no plan reqd Nishant Villagomez tler PA-C Work Phone: Start: 01-18-2023 End: 01-18-2023 Lab findings surveillance Jes nixon MA Plan of Treatment Date Care Activity Detail Author Start: 02-23-2023 Screening mammography bi 2-view breast inc cad Mammogram Bilateral Screening Digital w/CAD (85906) with 3D (tomosynthesis), bilateral (77929) Start: 23-Feb-2023 [facility] [employer] Start: 01-24-2023 End: 01-25-2023 Dxa bone density study 1/> sites axial skel Bone Density (28059) Date: 24-Jan-2023 [facility] [facility] [employer] Start: 10-13-2022 Influenza vaccination INFLUENZA VACCINE (#1) [facility] Start: 2021 Pneumococcal vaccination PNEUMOCOCCAL VACCINE SERIES (1 - PCV) [facility] Start: 07-24-2016 End: 07-24-2016 Appointment Appointment [facility] Work Phone: Start: 07-24-2016 End: 07-24-2016 KEHINDE BUSBY [facility] Work Phone: Start: 07-24-2016 End: 07-24-2016 Follow Up Appt 1 year Follow Up Appt 1 year [facility] Work Phone: Start: 07-27-2015 End: 07-06-2016 *Hepatic Function Panel *Hepatic Function Panel [facility] Work Phone: Start: 07-27-2015 End: 07-27-2015 KEHINDE BUSBY [facility] Work Phone: Start: 07-27-2015 End: 07-27-2015 Ecg routine ecg w/least 12 lds w/i&r EKG (In office) [facility] Work Phone: Start: 07-27-2015 End: 07-27-2015 Echocardiography Echocardiogram (complete) [facility] Work Phone: Start: 07-27-2015 End: 07-27-2015 Follow Up Appt 1 year Follow Up Appt 1 year [facility] Work Phone: Start: 07-27-2015 End: 07-06-2016 Lipid 1996 panel *Lipid Profile CC PCP [facility] Work Phone: Start: 07-27-2015 End: 07-27-2015 Nuclear stress test -Lexiscan Nuclear stress test -Lexiscan [facility] Work Phone: Start: 2006 Zoster vaccine hzv live for subcutaneous use ZOSTER (SHINGLES) VACCINE (1 of 2) [facility] Start: 2001 Screening for malignant neoplasm of colon COLORECTAL CANCER SCREENING DISCUSSION [facility] Start: 1996 Lipid panel LIPID SCREENING [facility] Start: 1996 Screening for malignant neoplasm of breast MAMMOGRAM SCREENING DISCUSSION [facility] Start: 1977 Screening for malignant neoplasm of cervix CERVICAL CANCER SCREENING DISCUSSION [facility] Start: 10-18-1975 Third diphtheria, tetanus and acellular pertussis (DTaP) vaccination TDAP (ADULT) [facility] Start: 04-16-1957 COVID-19 VACCINE (#1) COVID-19 VACCINE (#1) [facility] Start: 1955 Hepatitis C screening HEPATITIS C VIRUS SCREENING [facility] Start: 1955 Screening for osteoporosis DEXA SCAN DISCUSSION [facility] Start: 1955 Tetanus vaccination TETANUS [facility] Immunizations Immunization Date Immunization Notes Care Provider Davide villegas 02-19-2015 tetanus toxoid, reduced diphtheria toxoid, and acellular pertussis vaccine, adsorbed Nishant Lopez PA-C Work Phone: [facility] [facility] Payers Date Payer Category Payer Unknown 1955 Unknown [id number] 1955 Unknown [id number] 1955 Unknown [id number] Unknown [id number] Social History Date Type Detail Facility [facility] Tobacco smoking consumption unknown [facility] Current Work/Study Status: Current Work/Study Status: ; Full-time. [facility] [employer] [facility] Start: 02-16-2023 Non Smoker/No Tobacc o Use Non Smoker/No Tobacco Use [facility]. Female [facility]; [facility] Work Phone: [facility]-time [facility]; [facility] Work Phone: Start: 02-16-2023 Tobacco smoking status NHIS Never smoked tobacco [facility] Start: 02-16-2023 Tobacco use and exposure Smokeless tobacco non-user [facility] Start: 02-16-2023 Alcohol intake Lifetime non-d dejan (finding) [facility] Start: 02-16-2023 Tobacco use panel [facility] Start: 1955 Sex Assigned At Not on file A [facility] History of Present illness Narrative 02-16-2023 Armida Emmanuel, [facility] - 02/16/2023 8:40 AM EST Note Date & Type Note Facility 02-16-2023 History of Presen t illness Narrative HPI Jazmyne Disla female 1955 presents to the [facility] with Chief Complaint Patient presents with Cough Sinus Congestion Patient c/o of cough, sinus congestion, body aches, started last Sunday Presents with c/o cough onset 1 week ago. Cough is moist productive with yellow/green sputum. Denies dyspnea, wheezing or fever/chills. Taking dayquil. History No Known Allergies Current Outpatient Medications Medication Sig Azithromycin 250 MG tablet 2 tabs po day 1 then 1 tab day 2-5 predniSONE 20 MG tablet Take 1 tablet by mouth 2 times daily for 5 days. family history is not on file. No past medical history on file. Past Surgical History: Procedure Laterality Date HYSTERECTOMY KNEE REPLACEMENT Bilateral TOE SURGERY Social History Socioeconomic History Marital status: Spouse name: Not on file Number of children: Not on file Years of education: Not on file Highest education level: Not on file Occupational History Not on file Tobacco Use Smoking status: Never Smokeless tobacco: Never Vaping Use Vaping Use: Never used Substance and Sexual Activity Alcohol use: Never Drug use: Never Sexual activity: Not on file Other Topics Concern Service Not Asked Blood Transfusions Not Asked Caffeine Concern Not Asked Occupational Exposure Not Asked Hobby Hazards Not Asked Sleep Concern Not Asked Stress Concern Not Asked Weight Concern Not Asked Special Diet Not Asked Back Care Not Asked Exercise Not Asked Bike Helmet Not Asked Seat Belt Not Asked Domestic Violence No Social History Narrative Not on file Social Determinants of Health Financial Resource Strain: Not on file Food Insecurity: Not on file Transportation Needs: Not on file Physical Activity: Not on file Stress: Not on file Social Connections: Not on file Intimate Partner Violence: Not on file Housing Stability: Not on file ROS Review of Systems Constitutional: Negative. Negative for chills and fever. HENT: Positive for congestion. Negative for sneezing. Eyes: Negative. Negative for discharge. Respiratory: Positive for cough. Negative for shortness of breath and wheezing. Cardiovascular: Negative. Negative for chest pain and leg swelling. Gastrointestinal: Negative. Negative for abdominal pain and constipation. Endocrine: Negative. Genitourinary: Negative for difficulty urinating. Musculoskeletal: Negative. Negative for gait problem. Skin: Negative. Negative for color change and pallor. Neurological: Negative. Negative for weakness and headaches. Hematological: Negative. Does not bruise/bleed easily. Psychiatric/Behavioral: Negative. Negative for confusion. All other systems reviewed and are negative. PHYSICAL EXAM Visit Vitals BP 127/72 Pulse 72 Temp 100.2 F (37.9 C) (Temporal) Resp 18 Ht 1.575 m (5' 2 ) Wt 60.3 kg (133 lb) SpO2 98% BMI 24.33 kg/m Physical Exam Vitals and nursing note reviewed. HENT: Head: Normocephalic and atraumatic. Eyes: Pupils: Pupils are equal, round, and reactive to light. Cardiovascular: Rate and Rhythm: Normal rate and regular rhythm. Heart sounds: Normal heart sounds. Pulmonary: Effort: Pulmonary effort is normal. Breath sounds: Normal breath sounds. Abdominal: General: Bowel sounds are normal. Palpations: Abdomen is soft. Musculoskeletal: General: Normal range of motion. Cervical back: Normal range of motion and neck supple. Skin: General: Skin is warm and dry. Neurological: Mental Status: She is alert and oriented to person, place, and time. Recent Results (from the past 1 hour(s)) SARS-COV-2 RAPID ANTIGEN (CLINIC ONLY) Collection Time: 02/16/23 9:10 AM Specimen: NARES Result Value Ref Range SARS-COV-2 Rapid Antigen NOT DETECTED NOT DETECTED NARRATIVE -1 This test was performed using lateral flow immunoassay and has been approved as Emergency Use Authorization (EUA). This test does not differentiate between SARS-CoV and SARS-CoV2. POCT INFLUENZA, A B Collection Time: 02/16/23 9:25 AM Result Value Ref Range POCT Influenza A Negative Negative, Not Tested, Invalid POCT Influenza B Negative Negative, Not Tested, Invalid ASSESSMENT/PLAN 1. Sinus congestion - POCT INFLUENZA, A B - SARS-COV-2 RAPID ANTIGEN (CLINIC ONLY); Future - SARS-COV-2 RAPID ANTIGEN (CLINIC ONLY) 2. Acute bronchitis, unspecified organism - Azithromycin 250 MG tablet; 2 tabs po day 1 then 1 tab day 2-5 Dispense: 6 tablet; Refill: 0 - predniSONE 20 MG tablet; Take 1 tablet by mouth 2 times daily for 5 days. Dispense: 10 tablet; Refill: 0 Negative covid/flu. Rx given for ATB & prednisone. Recommend supportive measures & follow up with PCP If symptoms worsen patient was advised to follow up in our office or the Emergency Dept. Benefits, Risks, Contraindications, and Complications of recommended treatments were explained. The patient understands and agrees to proceed with plan. Armida Emmanuel CNP 02/16/2023 documented in this encounter [facility] Evaluation note Note Date & Type Note Facility documented in this encounter [facility] Summary Purpose Family History No Family History Records Found Osteoarthritis Status:Active Comments:Mother. Osteoarthritis Status:Active Comments:Mother. Osteoarthritis Status:Active Comments:Mother. Osteoarthritis Status:Active Comments:Mother. Osteoarthritis Status:Active Comments:Mother. Advance Directives No Advanced Directives Records FoundNo Advanced Directives Records FoundNo Advanced Directives Records FoundNo Advanced Directives Records Found Additional Source Comments INFORMATION SOURCE (unrecogn ized section and content) DATE CREATED AUTHOR AUTHOR'S ORGANIZ ATION 12/23/[address] [facility] DATE CREATED AUTHOR AUTHOR'S ORGANIZ ATION 01/29/2023 [facility] DATE CREATED AUTHOR AUTHOR'S ORGANIZ ATION 03/03/2023 [facility] <item> Privacy Markings (unrecogniz ed section and content) Section Author: Milka Thomas PROHIBITION ON REDISCLOSURE OF CONFIDENTIAL INFORMATION This notice accompanies a disclosure of information concerning a client made to you with the consent of such client. Reason for Visit (unrecogniz ed section and content) Care Teams (unrecognized sec tion and content) FOR RECORDS PERTAINING TO PATIENTS WHO ARE OR HAVE BEEN ENROLLED IN A CHEMICAL DEPENDENCY/SUBSTANCEABUSE PROGRAM, SOME INFORMATION MAY BE OMITTED. This clinical summary was aggregated from multiple sources. Caution should be exercised in using it in the provision of clinical care. This summary normalizes information from multiple sources, and as a consequence, information in this document may materially change the coding, format and clinical context of patient data. In addition, data may be omitted in some cases. CLINICAL DECISIONS SHOULD BE BASED ON THE PRIMARY CLINICAL RECORDS. [employer] provides no warranty or guarantee of the accuracy or completeness of information in this document.
== END | disposition home or self-care (01) ==
PROVIDERS: Visit Provider Urology
DX: R31.0 Gross hematuria (principal)
CPT/HCPCS: 88108; 88313

== ENCOUNTER 2023-04-19 08:48 | Day surgery (SDC) | payer OTHER, SELFPAY ==
[2023-04-19 09:26] VITALS: BP 158/84; PULSE 56; RESP 16; TEMP 36.8; O2SAT 100; BMI 24.2
[2023-04-19] MEDS: Lactated Ringers 1,000 ML 15 ML IV (09:32)
--- NOTE | 2023-04-19 10:48 | HP.PCM_ITS ---
HPI - General HPI Narrative ANDREA QUILES, is a 67 F who presents for an evaluation of right hydroureter found on a CT urogram done for an episode of gross hematuria. She has no complaints of flank pain, nausea or vomiting. Her hematuria has resolved. Informed consent has been obtained for the procedure. PENDING SALE TO [facility] Medical History (Updated 04/19/23 @ 10:[address] Charlotte Esposito MD) Alcohol use Arthritis Easy bruising Gastric reflux Gross hematuria Hydroureter Injury of head and neck Non-smoker Wears glasses Home Medications cyanocobalamin (vitamin B-12) 1,000 mcg tablet 1,000 mcg PO DAILY 07/21/19 [History Last Taken 04/18/23 06:15] multivitamin 1 ea PO DAILY 07/21/19 [History Last Taken 04/18/23 06:30] docusate sodium 100 mg capsule 100 mg PO BID PRN PRN Constipation #60 caps 07/28/19 [Rx Last Taken 04/18/23 07:30] famotidine 10 mg tablet 20 mg PO DAILY 04/13/23 [History Last Taken 04/19/23 05:00] calcium carbonate 600 mg-vitamin D3 20 mcg (800 unit) tablet 1 tab PO DAILY 04/19/23 [History Last Taken 04/18/23] Allergy/AdvReac Type Severity Reaction Status Date / Time No Known Allergies Allergy Verified 04/19/23 09:21 Surgical History History of bilateral knee replacement History of colonoscopy History of dental surgery History of hysterectomy History of toe surgery History of wisdom tooth extraction Social History Smoking Status: Never smoker ROS Constitutional Constitutional: Reports systems reviewed and no addt'l complaints, except as documented; Denies chills, fatigue, fever(s) or weakness Eyes Eyes: Reports systems reviewed and no addt'l complaints, except as documented ENT HEENT: Reports systems reviewed and no addt'l complaints, except as documented Cardiovascular Cardiovascular: Denies abdominal pain, chest pain or diaphoresis Respiratory/Chest Respiratory/Chest: Reports systems reviewed and no addt'l complaints, except as documented; Denies change in mental status, chest congestion, chest tightness, cough or dyspnea Gastrointestinal Gastrointestinal: Denies cramping, diarrhea, nausea or vomiting Genitourinary Genitourinary: Reports hematuria; Denies flank pain, urinary frequency, urinary hesitancy or urinary urgency Musculoskeletal Musculoskeletal: Reports systems reviewed and no addt'l complaints, except as documented; Denies back pain Integumentary Integumentary: Reports systems reviewed and no addt'l complaints, except as documented Neurologic Neurologic: Reports systems reviewed and no addt'l complaints, except as documented Psychiatric Psychiatric: Reports systems reviewed and no addt'l complaints, except as documented Endocrine Endocrinology: Reports systems reviewed and no addt'l complaints, except as documented Hematologic/Lymphatic Hematologic/Lymphatic: Reports systems reviewed and no addt'l complaints, except as documented Allergic/Immunologic Allergic/Immunologic: Reports systems reviewed and no addt'l complaints, except as documented Vital Signs Vital Signs Vital Signs: 04/19/23 09:26 04/19/23 09:26 Temperature 98.2 F Temperature Source Temporal Pulse Rate 56 L Respiratory Rate 16 Respiratory Pattern Normal Blood Pressure 158/84 H Blood Pressure Mean 108 Blood Pressure Source Monitor Blood Pressure Position Sitting Blood Pressure Location Left Arm Pulse Ox 100 Oxygen Delivery Method Room Air Weight Weight: 60 kg Body Mass Index (BMI) 24.2 Physical Exam Const alert, oriented x3 and no apparent distress HEENT normocephalic, head/scalp atraumatic, hearing grossly normal bilaterally, external ears normal, external nose normal and moist oral mucous membranes Eyes General Eye: normal appearance of both eyes Neck supple General: normal visual inspection and trachea midline Lymph Lymphatic: no lymphedema noted Chest inspection of chest normal Chest: symmetrical chest wall rise Resp normal respiratory effort, normal air movement, no retractions and no use of accessory muscles Cardio regular rate and regular rhythm GI soft to palpation, non-tender and non-distended no CVA tenderness Back/Spine no CVA tenderness Extremity normal to inspection Skin no rashes or lesions noted, no wounds, skin turgor normal, no jaundice, no petechiae and no mottling Neuro oriented x3, CN's II-XII intact bilaterally and moves all extremities Psych mental status grossly normal, thought process normal, cooperative and affect normal Assessment & Plan Assessment/Plan (1) Gross hematuria: (2) Hydroureter: PLAN: Plan Proceed with cystoscopy, right retrograde pyelogram, right ureteroscopy with possible right ureteral stent insertion. Informed consent has been obtained.
--- NOTE | 2023-04-19 10:52 | EX.PCM.DISCH ---
Discharge Instructions Diet Discharge Diet: No restrictions Activity Discharge Activity: Return to Normal Activity May resume sexual activity in: No Restrictions Dressing / Incision Call your doctor if you observe: Fever of 101 or Higher, Inability to urinate and Inability to have a bowel movement Follow Up Care Please Follow Up With: Charlotte Esposito MD When: The office will call the patient for follow-up instructions Test Results: Test results from this visit will be discussed in further detail at your follow-up appointment, if applicable. Discharge Plan Admission Attending Provider: Charlotte Esposito Primary Care Provider: Nishant Noonan Discharge Orders/Prescriptions Prescriptions: New cephalexin [cephalexin] 500 mg capsule 500 mg PO Q12 3 Days Qty: 6 0RF Continued multivitamin 1 EACH tablet 1 ea PO DAILY cyanocobalamin (vitamin B-12) 1,000 MCG tablet 1,000 mcg PO DAILY docusate sodium 100 MG capsule 100 mg PO BID PRN PRN (Reason: Constipation) Qty: 60 1RF famotidine 10 mg tablet 20 mg PO DAILY calcium carbonate-vitamin D3 600 mg-20 mcg (800 unit) tablet 1 tab PO DAILY Referrals / Follow Up: Nishant Noonan PA [Primary Care Provider] - Disposition Disposition (needs filled in before D/C Order can be placed): Home, Self Care
--- NOTE | 2023-04-19 10:53 | PCM.OPRPT ---
Report of Operation Date of Procedure: 04/19/23 Pre-Operative Diagnosis: Right hydroureter, gross hematuria Post-Operative Diagnosis: Same, right ureterocele Surgery/Procedure Performed:: Cystoscopy, right retrograde pyelogram, attempted right ureteroscopy Surgeon: Charlotte Esposito Type of Anesthesia: General Description of Procedure: The patient is a 67-year-old female with a history of gross hematuria who had an evaluation revealing right hydroureter on CT urogram. She now presents for further evaluation. Informed consent was obtained. She was taken to the operating room and placed on the operating room table. Anesthesia monitored the head, neck, airway, IV access and vital signs throughout the case. Once anesthesia was appropriate administered, she was placed into dorsolithotomy position and was prepped and draped in usual sterile fashion. The cystoscope was inserted through the urethra under direct visualization into the urinary bladder which was visualized in its entirety. There was no evidence of mass, erythema or ulceration. The ureteral orifices were located in the correct anatomic position on the area of the trigone. Left ureteral orifice was normal in appearance, the right ureteral orifice was consistent with a ureterocele with a narrowed pinpoint opening. There was a good ureteral jet observed from this orifice as well as the left one. Using fluoroscopic visualization and an 8 Tamazight cone-tip catheter, a retrograde pyelogram was performed revealing no evidence of filling defect, mass or other abnormality aside from mild right ureteral dilation. The calyces of the kidney were very much intact and sharp. An attempt was made with at ureteroscopy with a semirigid ureteroscope, this was unsuccessful due to the size of the right ureteral orifice. The patient desired to avoid a ureteral stent placement. A call was placed to family who agreed with avoiding manipulation of this asymptomatic congenital finding. The bladder was then emptied and the cystoscope was removed. The patient was awakened and taken to the recovery room in good condition. There were no complications during this procedure. Grafts/Implants Used: None Complications None Admit VTE Documentation VTE Present on Admission: Yes VTE Mechan Device Prophylaxis: SCD's VTE Pharm Prophylaxis ordered?: No Reason prophylaxis not ordered:: Treatment Not Indicated
[2023-04-19] MEDS: Cefazolin 2 GM in 0.9% Normal Saline (100mL Bag) 100 ML IV (10:54)
[2023-04-19 11:24] VITALS: BP 100/65; BP 158/84; PULSE 60; RESP 18; TEMP 36.2; O2SAT 99
[2023-04-19 11:30] VITALS: BP 103/68; BP 158/84; PULSE 70; RESP 16; O2SAT 97
[2023-04-19 11:35] VITALS: BP 117/72; BP 158/84; PULSE 66; RESP 16; O2SAT 99
[2023-04-19 11:46] VITALS: BP 118/73; BP 158/84; PULSE 66; RESP 16; TEMP 36.8; O2SAT 100
[2023-04-19 12:24] VITALS: BP 158/84
== END 2023-04-19 12:32 | disposition home or self-care (01) ==
LOC: SDC 08:55 → AC 08:56
PROVIDERS: PCP Physician Assistant; Referring Provider Physician Assistant; Visit Provider Urology
PROC: 0TJ98ZZ Inspection of Ureter, Via Natural or Artificial Opening Endoscopic (ICD-10-PCS; CPT 52352; principal; 2023-04-19 10:20)
DX: N13.4 Hydroureter (principal); R31.0 Gross hematuria; K21.9 Gastro-esophageal reflux disease without esophagitis
CPT/HCPCS: 52005; 00910; 76000; J7120; J2405